=== PATIENT | male | born 1985 | race Hispanic/Latino ===

== ENCOUNTER 2022-01-12 18:25 | Emergency (ER) | payer SELFPAY ==
[2022-01-12] MEDS ORDERED: Midazolam HCl 2 mg/2 ml Vial ONE (19:29)
[2022-01-12] MEDS ORDERED: Fentanyl 100 MCG/2 ML VIAL ONE ×2 (19:29→20:55)
== END 2022-01-12 21:18 | disposition home or self-care (01) ==
LOC: NAV ERS 18:25
DX: S43.015A Anterior dislocation of left humerus, initial encounter (principal); F17.210 Nicotine dependence, cigarettes, uncomplicated; Z79.899 Other long term (current) drug therapy; X58.XXXA Exposure to other specified factors, initial encounter
CPT/HCPCS: 96374; 96375; 96376; J2250; J3010